=== PATIENT | female | born 1965 | race Caucasian/White ===

== ENCOUNTER 2017-04-03 21:41 | Emergency (ER) | payer MEDICARE, OTHER | END 2017-04-03 23:57 | disposition left against medical advice (07) | LOC: ER1 21:41 | DX: Z53.21 Procedure and treatment not carried out due to patient leaving prior to being seen by health care provider (principal) ==

== ENCOUNTER 2020-07-21 10:33 | Inpatient (IN) | payer MEDICARE ==
[~2020-07-21] VITALS: Ht 162.6 cm; Wt 98.0 kg
[~2020-07-21 10:33] MED LIST: AIMOVIG AU70 MG/1 ML SQ; ASPIR 8181 MG PO; GLUCOTROL XL 22.5 MG PO; IBUPROFEN400 MG PO; JANUVIA 100 MG100 MG PO; NEURONTIN300 MG PO; NITROSTAT 0.40.4 MG SL; ROBAXIN 750 MG750 MG PO; SOLIQUA 100 UNIT3 ML SQ; TOPROL XL 50 MG50 MG PO; VALSARTAN-HCTZ1 EAC1 PO
[2020-07-21 11:14] LABS: HEMOGLOBIN 14.3 gm/dl (12.3-15.3); RED BLOOD COUNT 4.6 M/UL (4.00-5.10)
[2020-07-21 12:33] LABS: BUN/CREATININE RATIO 27 (0-10)
[2020-07-21] MEDS ORDERED: ASPIRIN EC81 MG PO (14:14)
[2020-07-21] MEDS ORDERED: TYLENOL 500 MG500 MG PO (14:17)
[2020-07-21] MEDS ORDERED: CYMBALTA60 MG PO (14:18)
[2020-07-22 05:56] LABS: HEMOGLOBIN 14.3 gm/dl (12.3-15.3); RED BLOOD COUNT 4.62 M/UL (4.00-5.10); WHITE BLOOD COUNT 9.5 K/UL (4.5-11.0)
[2020-07-22 06:17] LABS: BUN/CREATININE RATIO 29 (0-10)
[2020-07-22] MEDS ORDERED: CLOPIDOGREL75 MG PO (11:03)
[2020-07-22] MEDS ORDERED: ATORVASTATIN CA20 MG PO (11:03)
== END 2020-07-22 17:54 | disposition home health service (06) | DRG 66 ==
LOC: ER1 10:33 → M/S 13:43 → CDU 13:43 → M/S 13:43
PROVIDERS: Emergency Medicine; Physician Assistant; ADMIT Internal Medicine
PROC: B24BZZZ Ultrasonography of Heart with Aorta (ICD-10-PCS; principal; 2020-07-22)
DX: I63.89 Other cerebral infarction (principal); I10 Essential (primary) hypertension; E11.65 Type 2 diabetes mellitus with hyperglycemia; Z20.822 Contact with and (suspected) exposure to COVID-19; E78.5 Hyperlipidemia, unspecified; I25.10 Atherosclerotic heart disease of native coronary artery without angina pectoris; I65.23 Occlusion and stenosis of bilateral carotid arteries; E11.40 Type 2 diabetes mellitus with diabetic neuropathy, unspecified; Z79.82 Long term (current) use of aspirin; Z79.4 Long term (current) use of insulin; Z79.899 Other long term (current) drug therapy; I69.392 Facial weakness following cerebral infarction; I69.328 Other speech and language deficits following cerebral infarction; Z98.61 Coronary angioplasty status; Z90.49 Acquired absence of other specified parts of digestive tract; Z90.710 Acquired absence of both cervix and uterus; Z98.51 Tubal ligation status; Z88.0 Allergy status to penicillin; Z83.3 Family history of diabetes mellitus; Z82.49 Family history of ischemic heart disease and other diseases of the circulatory system
CPT/HCPCS: ECHO; 36415; 70450; 70496; 70498; 70551; 71045; 80048; 80053; 80061; 82550; 82553; 82962; 83036; 83874; 84484; 85025; 90471; 92507; 92610; 93005; 93306; 93880; 96372; 96374; 96375; 97162; 97166; 99285; G0378; J0360; Q9967; U0002

== ENCOUNTER → 2020-08-11 | Outpatient (CLI) | payer MEDICARE ==
[~2020-08-11] MED LIST changes: +AIMOVIG AU70 MG/1 ML SC; +ASPIRIN EC81 MG PO; +ATORVASTATIN CA20 MG PO; +ATORVASTATIN CA40 MG PO; +AUGMENTIN 875-1 EACH PO; +BACTRIM DS TAB1 EACH PO; +CLINDAMYCIN HC150 MG PO; +CLOPIDOGREL75 MG PO; +CYMBALTA60 MG PO; +DULOXETINE HCL60 MG PO; +ECOTRIN81 MG PO; +GABAPENTIN300 MG PO; +HYDROCODON-ACE1 EAC4 PO; +IBUPROFEN600 MG PO; +ISOSORBIDE MONO60 MG PO; +JARDIANCE25 MG PO; +METOPROLOL SUCC50 MG PO; +NITROGLYCERIN0.4 MG SL; +NORVASC10 MG PO; +PATADAY5 ML OP; +RANOLAZINE ER500 MG PO; +SOLIQUA 100 UNIT3 ML SC; +TYLENOL 500 MG500 MG PO; +VITAMIN D21250 MCG PO
== END ==
LOC: HEART CORB 09:24
DX: Z01.818 Encounter for other preprocedural examination (principal); R94.39 Abnormal result of other cardiovascular function study; I25.10 Atherosclerotic heart disease of native coronary artery without angina pectoris; I63.233 Cerebral infarction due to unspecified occlusion or stenosis of bilateral carotid arteries
CPT/HCPCS: 78452; A9502; J2785

== ENCOUNTER → 2020-10-08 | Outpatient (CLI) | payer MEDICARE, OTHER ==
[2020-10-08 13:06] LABS: HEMOGLOBIN 14.6 gm/dl (12.3-15.3); RED BLOOD COUNT 4.5 M/UL (4.00-5.10); WHITE BLOOD COUNT 8.8 K/UL (4.5-11.0)
[2020-10-08 13:19] LABS: BUN/CREATININE RATIO 37 (0-10)
== END ==
LOC: OPSV2 11:34
PROVIDERS: Surgery
DX: Z53.8 Procedure and treatment not carried out for other reasons (principal)
CPT/HCPCS: 36415; 71046; 80053; 81001; 85025; 85610; 85730; 86850; 86900; 86901; 93005; J1580; J1644

== ENCOUNTER 2020-10-09 05:42 | Inpatient (IN) | payer MEDICARE ==
[~2020-10-09] VITALS: Ht 162.6 cm; Wt 99.8 kg
[~2020-10-09 05:42] MED LIST changes: -AIMOVIG AU70 MG/1 ML SC; -ATORVASTATIN CA40 MG PO; -AUGMENTIN 875-1 EACH PO; -BACTRIM DS TAB1 EACH PO; -CLINDAMYCIN HC150 MG PO; -DULOXETINE HCL60 MG PO; -ECOTRIN81 MG PO; -GABAPENTIN300 MG PO; -HYDROCODON-ACE1 EAC4 PO; -IBUPROFEN600 MG PO; -ISOSORBIDE MONO60 MG PO; -JARDIANCE25 MG PO; -METOPROLOL SUCC50 MG PO; -NITROGLYCERIN0.4 MG SL; -NORVASC10 MG PO; -PATADAY5 ML OP; -RANOLAZINE ER500 MG PO; -SOLIQUA 100 UNIT3 ML SC; -VITAMIN D21250 MCG PO
[2020-10-09] MEDS ORDERED: CLOPIDOGREL75 MG PO (06:42)
[2020-10-09] MEDS ORDERED: AIMOVIG AU70 MG/1 ML SC (06:44)
[2020-10-09] MEDS ORDERED: SOLIQUA 100 UNIT3 ML SC (06:45)
[2020-10-09] MEDS ORDERED: ATORVASTATIN CA40 MG PO (06:45)
[2020-10-09] MEDS ORDERED: DULOXETINE HCL60 MG PO (06:46)
[2020-10-09] MEDS ORDERED: JARDIANCE25 MG PO (06:48)
[2020-10-09] MEDS ORDERED: RANOLAZINE ER500 MG PO (06:49)
[2020-10-09] MEDS ORDERED: METOPROLOL SUCC50 MG PO (06:49)
[2020-10-09] MEDS ORDERED: GABAPENTIN300 MG PO (06:50)
[2020-10-09] MEDS ORDERED: VALSARTAN-HCTZ1 EAC1 PO (06:50)
[2020-10-09] MEDS ORDERED: ECOTRIN81 MG PO (06:51)
[2020-10-09 14:42] LABS: HEMOGLOBIN 12.3 gm/dl (12.3-15.3); RED BLOOD COUNT 3.88 M/UL (4.00-5.10); WHITE BLOOD COUNT 12.5 K/UL (4.5-11.0)
[2020-10-10 02:31] LABS: HEMOGLOBIN 12.1 gm/dl (12.3-15.3); RED BLOOD COUNT 3.83 M/UL (4.00-5.10); WHITE BLOOD COUNT 10.8 K/UL (4.5-11.0)
[2020-10-10 03:04] LABS: BUN/CREATININE RATIO 28 (0-10)
[2020-10-11 05:04] LABS: HEMOGLOBIN 12.6 gm/dl (12.3-15.3); RED BLOOD COUNT 3.96 M/UL (4.00-5.10); WHITE BLOOD COUNT 9.8 K/UL (4.5-11.0)
--- NOTE | 2020-10-11 21:20 | NUR ---
RECEIVED REPORT FROM DARIEL HOBBS. THIS NURSE AGREES WITH PREVIOUS NURSE'S ASSESSMENT. RECEVIED PT TO ROOM 6102. NO ACUTE DISTRESS NOTED. WILL CONTINUE TO MONITOR PT.
[2020-10-12] MEDS ORDERED: NORVASC10 MG PO (08:54)
[2020-10-12] MEDS ORDERED: IBUPROFEN600 MG PO (11:19)
== END 2020-10-12 12:28 | disposition home or self-care (01) | DRG 37 ==
LOC: ZOBSOF 05:42 → CCU 05:42 → PROG CARE 10-11 21:06
PROVIDERS: Family Medicine; ADMIT Surgery
PROC: 03CH0ZZ Extirpation of Matter from Right Common Carotid Artery, Open Approach (ICD-10-PCS; principal; 2020-10-09 07:30)
DX: I65.21 Occlusion and stenosis of right carotid artery (principal); J96.01 Acute respiratory failure with hypoxia; J98.11 Atelectasis; E66.2 Morbid (severe) obesity with alveolar hypoventilation; D64.9 Anemia, unspecified; Z20.822 Contact with and (suspected) exposure to COVID-19; E78.5 Hyperlipidemia, unspecified; E11.42 Type 2 diabetes mellitus with diabetic polyneuropathy; R13.10 Dysphagia, unspecified; I10 Essential (primary) hypertension; E55.9 Vitamin D deficiency, unspecified; I25.10 Atherosclerotic heart disease of native coronary artery without angina pectoris; T38.0X5A Adverse effect of glucocorticoids and synthetic analogues, initial encounter; E11.65 Type 2 diabetes mellitus with hyperglycemia; Z86.73 Personal history of transient ischemic attack (TIA), and cerebral infarction without residual deficits; Z79.4 Long term (current) use of insulin; Z79.82 Long term (current) use of aspirin; Z88.0 Allergy status to penicillin; Z98.51 Tubal ligation status; Z82.49 Family history of ischemic heart disease and other diseases of the circulatory system; Z95.5 Presence of coronary angioplasty implant and graft; Z68.37 Body mass index [BMI] 37.0-37.9, adult
CPT/HCPCS: 36415; 71045; 71046; 76536; 80048; 80053; 81001; 82550; 82553; 82962; 84484; 85025; 85027; 85610; 85730; 86850; 86900; 86901; 93005; J1170; J1580; J1644; J1885; J2001; J2370; J2704; J2710; J2720; J2920; J2930; J3010; J3370; J7030; J7040; J7050; J7070; J7120; U0003

== ENCOUNTER 2020-10-21 17:59 | Emergency (ER) | payer MEDICARE ==
[~2020-10-21 17:59] MED LIST changes: +AIMOVIG AU70 MG/1 ML SC; +ATORVASTATIN CA40 MG PO; +DULOXETINE HCL60 MG PO; +ECOTRIN81 MG PO; +GABAPENTIN300 MG PO; +IBUPROFEN600 MG PO; +JARDIANCE25 MG PO; +METOPROLOL SUCC50 MG PO; +NORVASC10 MG PO; +RANOLAZINE ER500 MG PO; +SOLIQUA 100 UNIT3 ML SC
[2020-10-21 19:41] LABS: RED BLOOD COUNT 3.72 M/UL (4.00-5.10); WHITE BLOOD COUNT 11.8 K/UL (4.5-11.0)
[2020-10-21] MEDS ORDERED: CLINDAMYCIN HC150 MG PO (22:09)
== END 2020-10-21 23:00 | disposition home or self-care (01) ==
LOC: ER1 17:59
PROVIDERS: Emergency Medicine
DX: L76.22 Postprocedural hemorrhage of skin and subcutaneous tissue following other procedure (principal); E11.9 Type 2 diabetes mellitus without complications; I10 Essential (primary) hypertension; E78.5 Hyperlipidemia, unspecified; I25.10 Atherosclerotic heart disease of native coronary artery without angina pectoris; Z88.0 Allergy status to penicillin
CPT/HCPCS: 70498; 80053; 83605; 85025; 87040; 96365; 99284; Q9967

== ENCOUNTER 2020-11-18 23:06 | Emergency (ER) | payer MEDICARE ==
[~2020-11-18 23:06] MED LIST changes: +CLINDAMYCIN HC150 MG PO
== END 2020-11-19 00:20 | disposition left against medical advice (07) ==
LOC: ER1 23:06
DX: Z53.21 Procedure and treatment not carried out due to patient leaving prior to being seen by health care provider (principal)
CPT/HCPCS: 93005

== ENCOUNTER 2020-11-20 23:53 | Emergency (ER) | payer MEDICARE ==
[2020-11-21 02:48] LABS: HEMOGLOBIN 12.8 gm/dl (12.3-15.3); RED BLOOD COUNT 4.02 M/UL (4.00-5.10)
[2020-11-21 03:08] LABS: BUN/CREATININE RATIO 16 (0-10)
[2020-11-21] MEDS ORDERED: HYDROCODON-ACE1 EAC4 PO (05:20)
== END 2020-11-21 05:45 | disposition home or self-care (01) ==
LOC: ER1 23:53
PROVIDERS: Student in an Organized Health Care Education/Training Program
DX: R07.9 Chest pain, unspecified (principal); L03.116 Cellulitis of left lower limb; E11.9 Type 2 diabetes mellitus without complications; I25.10 Atherosclerotic heart disease of native coronary artery without angina pectoris; Z90.49 Acquired absence of other specified parts of digestive tract; Z88.0 Allergy status to penicillin; Z79.899 Other long term (current) drug therapy
CPT/HCPCS: 71045; 73630; 80053; 82550; 82553; 83605; 83690; 83874; 84484; 84702; 85025; 85652; 86140; 93005; 99285

== ENCOUNTER 2020-11-23 15:36 | Inpatient (IN) | payer MEDICARE, MEDICAID ==
[~2020-11-23] VITALS: Ht 160 cm; Wt 92.5 kg
[~2020-11-23 15:36] MED LIST changes: +HYDROCODON-ACE1 EAC4 PO
[2020-11-23 16:47] LABS: HEMOGLOBIN 11.6 gm/dl (12.3-15.3); RED BLOOD COUNT 3.59 M/UL (4.00-5.10); WHITE BLOOD COUNT 7.9 K/UL (4.5-11.0)
[2020-11-23 17:09] LABS: BUN/CREATININE RATIO 21 (0-10)
[2020-11-24] MEDS ORDERED: ISOSORBIDE MONO60 MG PO (04:07)
[2020-11-24 05:40] LABS: HEMOGLOBIN 11.1 gm/dl (12.3-15.3); RED BLOOD COUNT 3.5 M/UL (4.00-5.10); WHITE BLOOD COUNT 6.7 K/UL (4.5-11.0)
[2020-11-24 06:02] LABS: BUN/CREATININE RATIO 21 (0-10)
--- NOTE | 2020-11-24 07:29 | NUR ---
0630 PT CALLED OUT C/O CENTER CHEST PAIN ACHING OF A 5. dENIES ANY RADIATING PAIN. C/O SLIGHT SOB. BP 151/76 HR 94. WILL NOTIFY
--- NOTE | 2020-11-24 07:30 | NUR ---
0640 PT RATES CHEST PAIN A 2. REFUSES ANYMORE NITRO PILLS AT THIS TIME
--- NOTE | 2020-11-24 07:30 | NUR ---
0635 NITRO 1 PILL SUBLINGUAL GIVEN FOR CHEST PAIN OF 5
--- NOTE | 2020-11-24 09:42 | NUR ---
CALLED DR KRAUSE TO INFORM HIM THAT PATIENT HAD HAD AM CHEST PAIN AND RECIEVED NITRO AND GOT AN EKG. [employer] HAD SIGNED FOR EKG AND PUT IT IN THE CHART AND JUST CALLED TO MAKE ME AWARE. I WANTED TO SHARE THE RESULTS WITH THE DOCTOR. WILL CALL AGAIN LATER TO MAKE SURE HE IS AWARE.
--- NOTE | 2020-11-24 10:00 | NUR ---
CALLED DR KRAUSE WITH INFORMATION ABOUT PATIENTS EKG AND AM CHEST PAIN. STILL NO ANSWER.
[2020-11-24] MEDS ORDERED: METOPROLOL SUCC50 MG PO (12:26)
[2020-11-24] MEDS ORDERED: VITAMIN D21250 MCG PO (12:26)
[2020-11-24] MEDS ORDERED: NITROGLYCERIN0.4 MG SL (12:28)
[2020-11-25 07:26] LABS: BUN/CREATININE RATIO 25 (0-10)
[2020-11-26 03:35] LABS: RED BLOOD COUNT 3.41 M/UL (4.00-5.10); WHITE BLOOD COUNT 6.1 K/UL (4.5-11.0)
[2020-11-26 04:04] LABS: BUN/CREATININE RATIO 20 (0-10)
[2020-11-27 04:18] LABS: HEMOGLOBIN 10.6 gm/dl (12.3-15.3); RED BLOOD COUNT 3.33 M/UL (4.00-5.10); WHITE BLOOD COUNT 7.3 K/UL (4.5-11.0)
[2020-11-27 04:36] LABS: BUN/CREATININE RATIO 19 (0-10)
[2020-11-27] MEDS ORDERED: BACTRIM DS TAB1 EACH PO (12:31)
[2020-11-27] MEDS ORDERED: AUGMENTIN 875-1 EACH PO (12:31)
--- NOTE | 2020-11-27 14:53 | NUR ---
Pt. called around 1445 and stated she could not take Augmentin because she was allergic to PCN's and she was already gone and was currently at the pharmacy. I spoke with Dr. Todd and she stated to just let her take the Bactrim that she was also prescribed and that it would be fine for her to just not fill the Augmentin. Notified pts. @ [id number].
== END 2020-11-27 13:22 | disposition home or self-care (01) | DRG 603 ==
LOC: ER1 15:36 → M/S 18:06 → CDU 18:06 → M/S 11-24 02:58
PROVIDERS: Internal Medicine; Physician Assistant; Physician Assistant Medical; ADMIT Internal Medicine
DX: L03.116 Cellulitis of left lower limb (principal); I10 Essential (primary) hypertension; I25.10 Atherosclerotic heart disease of native coronary artery without angina pectoris; I65.21 Occlusion and stenosis of right carotid artery; E78.5 Hyperlipidemia, unspecified; E11.42 Type 2 diabetes mellitus with diabetic polyneuropathy; Z20.822 Contact with and (suspected) exposure to COVID-19; S91.332A Puncture wound without foreign body, left foot, initial encounter; W22.8XXA Striking against or struck by other objects, initial encounter; D50.9 Iron deficiency anemia, unspecified; Z95.5 Presence of coronary angioplasty implant and graft; Z86.73 Personal history of transient ischemic attack (TIA), and cerebral infarction without residual deficits; Z79.4 Long term (current) use of insulin; Z88.1 Allergy status to other antibiotic agents; Z88.0 Allergy status to penicillin; Z79.82 Long term (current) use of aspirin; Z90.49 Acquired absence of other specified parts of digestive tract; Z90.710 Acquired absence of both cervix and uterus; Z98.51 Tubal ligation status; Z83.3 Family history of diabetes mellitus; I25.2 Old myocardial infarction; Y92.9 Unspecified place or not applicable
CPT/HCPCS: 36415; 73630; 73718; 80048; 80053; 80061; 80202; 82550; 82553; 82607; 82962; 83036; 83605; 83735; 84439; 84443; 84484; 85025; 85027; 85652; 86140; 87040; 93005; 94640; 96365; 96372; 96374; 96375; 96376; 99285; G0378; J0692; J1650; J1956; J2185; J3370; J7070; U0002

== ENCOUNTER 2020-12-31 14:14 | Emergency (ER) | payer MEDICARE, OTHER ==
[~2020-12-31 14:14] MED LIST changes: +AUGMENTIN 875-1 EACH PO; +BACTRIM DS TAB1 EACH PO; +ISOSORBIDE MONO60 MG PO; +NITROGLYCERIN0.4 MG SL; +VITAMIN D21250 MCG PO
[2020-12-31 15:15] LABS: HEMOGLOBIN 13.1 gm/dl (12.3-15.3); RED BLOOD COUNT 4.27 M/UL (4.00-5.10)
[2020-12-31 15:43] LABS: BUN/CREATININE RATIO 25 (0-10)
== END 2020-12-31 21:56 | disposition home or self-care (01) ==
LOC: ER1 14:14
DX: S09.90XA Unspecified injury of head, initial encounter (principal); S80.01XA Contusion of right knee, initial encounter; E78.5 Hyperlipidemia, unspecified; E11.9 Type 2 diabetes mellitus without complications; I95.1 Orthostatic hypotension; E86.0 Dehydration; I25.2 Old myocardial infarction; Z90.49 Acquired absence of other specified parts of digestive tract; Z90.89 Acquired absence of other organs; Z90.710 Acquired absence of both cervix and uterus; Z86.73 Personal history of transient ischemic attack (TIA), and cerebral infarction without residual deficits; Z79.01 Long term (current) use of anticoagulants; Z79.02 Long term (current) use of antithrombotics/antiplatelets; Z88.0 Allergy status to penicillin
CPT/HCPCS: 70450; 73564; 80053; 81001; 82550; 82553; 82962; 83874; 84484; 85025; 85610; 93005; 96374; 96375; 99284; J2405

== ENCOUNTER → 2021-01-09 | Outpatient (CLI) | payer MEDICARE ==
[~2021-01-09] MED LIST changes: +PATADAY5 ML OP
[2021-01-09 13:58] LABS: RED BLOOD COUNT 4.27 M/UL (4.00-5.10); WHITE BLOOD COUNT 7.2 K/UL (4.5-11.0)
== END ==
LOC: LAB 13:04
PROVIDERS: Podiatrist Foot & Ankle Surgery
DX: S91.332A Puncture wound without foreign body, left foot, initial encounter (principal); S90.32XA Contusion of left foot, initial encounter
CPT/HCPCS: 36415; 85027; 85652; 86140

== ENCOUNTER 2021-02-05 16:54 | Emergency (ER) | payer MEDICARE ==
[~2021-02-05 16:54] MED LIST changes: -PATADAY5 ML OP
[2021-02-05] MEDS ORDERED: PATADAY5 ML OP (17:31)
== END 2021-02-05 17:45 | disposition home or self-care (01) ==
LOC: ER1 16:54
DX: H10.9 Unspecified conjunctivitis (principal); E11.9 Type 2 diabetes mellitus without complications
CPT/HCPCS: 99283

== ENCOUNTER 2021-06-29 09:49 | Emergency (ER) | payer MEDICARE ==
[~2021-06-29 09:49] MED LIST changes: +PATADAY5 ML OP
[2021-06-29 11:10] LABS: HEMOGLOBIN 13.8 gm/dl (12.3-15.3); RED BLOOD COUNT 4.63 M/UL (4.00-5.10); WHITE BLOOD COUNT 8.4 K/UL (4.5-11.0)
[2021-06-29 11:40] LABS: BUN/CREATININE RATIO 17 (0-10)
== END 2021-06-29 13:35 | disposition home or self-care (01) ==
LOC: ER1 09:49
PROVIDERS: Family Medicine
DX: G45.9 Transient cerebral ischemic attack, unspecified (principal); E11.9 Type 2 diabetes mellitus without complications; I25.2 Old myocardial infarction
CPT/HCPCS: 36415; 70450; 71045; 80053; 80061; 82550; 82553; 83874; 84439; 84443; 84484; 85025; 93005; 99284; J7040

== ENCOUNTER 2021-07-10 16:36 | Emergency (ER) | payer MEDICARE ==
[2021-07-10 17:30] LABS: HEMOGLOBIN 14.2 gm/dl (12.3-15.3); RED BLOOD COUNT 4.7 M/UL (4.00-5.10); WHITE BLOOD COUNT 5.1 K/UL (4.5-11.0)
[2021-07-10 17:54] LABS: BUN/CREATININE RATIO 16 (0-10)
[2021-07-10] MEDS ORDERED: LOPRESSOR 50 MG50 MG GT (20:01)
== END 2021-07-10 20:20 | disposition home or self-care (01) ==
LOC: ER1 16:36
PROVIDERS: Student in an Organized Health Care Education/Training Program
DX: R05.9 Cough, unspecified (principal); T44.5X5A Adverse effect of predominantly beta-adrenoreceptor agonists, initial encounter; R94.4 Abnormal results of kidney function studies; Z20.822 Contact with and (suspected) exposure to COVID-19; I25.2 Old myocardial infarction; I11.9 Hypertensive heart disease without heart failure; I50.9 Heart failure, unspecified; Z95.5 Presence of coronary angioplasty implant and graft; Z88.0 Allergy status to penicillin
CPT/HCPCS: 36600; 71045; 80048; 82550; 82553; 82803; 83880; 84484; 85025; 93005; 94664; 96374; 99285; J1100; U0002

== ENCOUNTER 2022-01-12 21:54 | Emergency (ER) | payer MEDICARE ==
[~2022-01-12 21:54] MED LIST changes: +LOPRESSOR 50 MG50 MG GT
== END 2022-01-12 22:45 | disposition left against medical advice (07) ==
LOC: ER1 21:54
DX: Z53.21 Procedure and treatment not carried out due to patient leaving prior to being seen by health care provider (principal)

== ENCOUNTER 2022-01-20 09:49 | Emergency (ER) | payer MEDICARE ==
[2022-01-20 11:59] LABS: RED BLOOD COUNT 5.38 M/UL (4.00-5.10); WHITE BLOOD COUNT 14.8 K/UL (4.5-11.0)
[2022-01-20 12:57] LABS: BUN/CREATININE RATIO 28 (0-10)
[2022-01-20] MEDS ORDERED: ZOFRAN 4 MG TAB4 MG PO (16:16)
== END 2022-01-20 16:25 | disposition home or self-care (01) ==
LOC: ER1 09:49
PROVIDERS: Physician Assistant Medical
DX: E11.65 Type 2 diabetes mellitus with hyperglycemia (principal); R19.7 Diarrhea, unspecified; R11.2 Nausea with vomiting, unspecified; I11.0 Hypertensive heart disease with heart failure; I50.9 Heart failure, unspecified; I25.2 Old myocardial infarction; Z79.4 Long term (current) use of insulin; Z86.73 Personal history of transient ischemic attack (TIA), and cerebral infarction without residual deficits; Z95.5 Presence of coronary angioplasty implant and graft; Z20.822 Contact with and (suspected) exposure to COVID-19
CPT/HCPCS: 80053; 81001; 82009; 82550; 82553; 82962; 83690; 84484; 85025; 93005; 96374; 96375; 99284; J2405; U0002